=== PATIENT | male | born 1955 | race Hispanic/Latino ===

== ENCOUNTER 2019-04-13 19:15 | Emergency (ER) | payer SELFPAY ==
[~2019-04-13] VITALS: Ht 160 cm; Wt 64.4 kg
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
[2019-04-13] MEDS ORDERED: NAPROXEN250 MG PO (21:28)
[2019-04-13] MEDS ORDERED: ROBAXIN-750750 MG PO (21:28)
== END 2019-04-13 22:30 | disposition home or self-care (01) ==
LOC: ER 19:15
DX: M54.2 Cervicalgia (principal); S16.1XXA Strain of muscle, fascia and tendon at neck level, initial encounter; M25.511 Pain in right shoulder; R07.81 Pleurodynia; V43.52XA Car driver injured in collision with other type car in traffic accident, initial encounter; Y92.488 Other paved roadways as the place of occurrence of the external cause
CPT/HCPCS: 70450; 71101; 72125; 99283